=== PATIENT | female | born 1945 | race Caucasian/White ===

== ENCOUNTER 2020-07-19 10:57 | Emergency (ER) | payer OTHER ==
[~2020-07-19 10:57] MED LIST: ATROVENT INH S2.5 ML INH; BREO ELLIPTA 11 EACH INH; BUMEX 1MG TABLET1 MG PO; CETIRIZINE HCL10 MG PO; CRESTOR10 MG PO; ESOMEPRAZOLE MA40 MG PO; IRBESARTAN-HCT1 EAC1 PO; LEVAQUIN750 MG PO; MECLIZINE HCL25 MG PO; MONTELUKAST SOD10 MG PO; NASONEX17 GM; NEURONTIN600 MG PO; PRAVASTATIN SOD80 MG PO; PREDNISONE5 M1 PO; PROTONIX40 MG PO; ROPINIROLE HCL2 M1 PO; SPIRIVA HANDIH18 MCG INH; SYMBICORT 160-1 INHA INH; SYNTHROID88 MCG PO; TOPROL XL25 MG PO; VALSARTAN160 MG PO; VENTOLIN/PROVE0.5 ML INH; VITAMIN D21250 MCG PO
[2020-07-19 12:01] LABS: HEMOGLOBIN 12.3 gm/dl (12.3-15.3); RED BLOOD COUNT 4.44 M/UL (4.00-5.10); WHITE BLOOD COUNT 10.4 K/UL (4.5-11.0)
== END 2020-07-19 17:04 | disposition other institution (70) ==
LOC: ER1 10:57
PROVIDERS: Family Medicine
DX: I63.9 Cerebral infarction, unspecified (principal); R47.01 Aphasia; R29.705 NIHSS score 5; F41.9 Anxiety disorder, unspecified; E87.6 Hypokalemia; N28.9 Disorder of kidney and ureter, unspecified; Z20.822 Contact with and (suspected) exposure to COVID-19
CPT/HCPCS: 0240U; 36600; 70450; 70496; 70498; 71045; 80053; 80307; 81001; 82550; 82553; 82803; 83605; 83874; 84484; 85025; 85610; 93005; 94760; 96374; 96375; 99285; Q9967

== ENCOUNTER 2021-02-16 12:49 | Inpatient (IN) | payer OTHER ==
[~2021-02-16] VITALS: Ht 175.3 cm; Wt 102.5 kg
[~2021-02-16 12:49] MED LIST changes: +SYNTHROID200 MCG PO; -SYNTHROID88 MCG PO
[2021-02-16 13:23] LABS: HEMOGLOBIN 7.4 gm/dl (12.3-15.3); RED BLOOD COUNT 3.34 M/UL (4.00-5.10)
[2021-02-16 13:43] LABS: BUN/CREATININE RATIO 36 (0-10)
[2021-02-16] MEDS ORDERED: SOTALOL80 MG PO (16:23)
[2021-02-16] MEDS ORDERED: ROPINIROLE HCL2 MG PO (16:23)
[2021-02-16] MEDS ORDERED: VITAMIN D21250 MCG PO (16:23)
[2021-02-16] MEDS ORDERED: BUMETANIDE2 MG PO (16:23)
[2021-02-16] MEDS ORDERED: SPIRIVA HANDIH18 MCG INH (16:24)
[2021-02-16] MEDS ORDERED: ELIQUIS5 MG PO (16:24)
[2021-02-16] MEDS ORDERED: BREO ELLIPTA 11 EACH INH (16:24)
[2021-02-16] MEDS ORDERED: PRAVASTATIN SOD80 MG PO (16:24)
[2021-02-16] MEDS ORDERED: PROAIR HFA8.5 GM INH (16:25)
[2021-02-16] MEDS ORDERED: MONTELUKAST SOD10 MG PO (16:25)
[2021-02-16] MEDS ORDERED: ESOMEPRAZOLE MA40 MG PO (16:25)
[2021-02-16] MEDS ORDERED: IPRAT-ALBUT 0.5-3 ML INH (16:26)
[2021-02-16] MEDS ORDERED: BAYER CHEWABLE81 MG PO (16:26)
[2021-02-16] MEDS ORDERED: CETIRIZINE HCL10 MG PO (16:27)
[2021-02-16] MEDS ORDERED: MAGNESIUM500 MG PO (16:27)
--- NOTE | 2021-02-17 02:14 | NUR ---
[address] SHELTON THAT TRANSFUSION OF BLOOD HAD BEGAN AND PT HR HAD BEEN IN 70'S AND AT 15MIN CHECK IN 120'S , ON TELEY MONITOR PT IN AFIB, ALL OTHER VITALS ARE NORMAL. STATES PT HAS HX OF AFIB. ALSO DOESNT WANT PT TO BE ALONE IN ROOM, ASK TO HAVE DAUGHTER OR SON AND IF THEY COULDNT, TO HAVE A SITTER PLACED, OR MOVE PT CLOSE TO NURSES STATION. 1943 CALLED AND SPOKE WITH DAUGHTER SERA ZABALA SHE STATES SHE HAS A TUMOR ON HIP AND CANT SIT WITH MOTHER AND BROTHER HAS DIABETES AND HIS NUMBER ARE OUT OF WHACK ALL THE TIME. NOTIFIED HOUSE OF ABOVE WELL STATED DIDNT HAVE EXTRA STAFF FOR SITTER, UNLESS HYDRATE CONTROL TENDER COULD SIT. PT WAS MOVE STRAIGHT ACROSS FROM NURSES STATION. 4108 TO 4110. PT HAS BEEN ADVISED TO NOT GET OUT OF BED AND TO HIT CALL LIGHT FOR ASSISTANCE, YELLOW SKID SOCKS, BED IN LOWEST POSITION AND LOCKED, FALL RISK LIGHT ON, BED ALARM STRIP PLACED UNDER PT, BRACLET PLACED.
--- NOTE | 2021-02-17 02:21 | NUR ---
[address] SHELTON OF PT HR STAYING IN THE 120'130'S SINCE ADMINSTRATION OF BETAPACE AT 2230. PT IN NO SIGNS OF DISTRESS. PER CARDIZEM 5MG IVP X ONCE. ORDERS WERE PLACED. CARDIZEM WAS PUSHED AT 0133 OVER 3 MINUTES 0136 PT HR WAS 131 AT BEGINGING OF PUSH, DROPPED TO 106 THEN BACK TO 120, FLUSHED WAS PUSHED FOR 2MINS. WILL CONTINUE TO MONITOR PT. PT IS ON CONTINIOUS TELEY MONTIORING AND PULSE OX.
--- NOTE | 2021-02-17 06:39 | NUR ---
PT HAS A HX OF CHF. I HAVE TRIED TO BE CAREFUL AND NOT OVER LOAD THE PT TOO FAST WITH 2 UNITS OF PRBC. RECHECK IS FOR 0736.
[2021-02-17 07:51] LABS: HEMOGLOBIN 8.8 gm/dl (12.3-15.3); WHITE BLOOD COUNT 9.6 K/UL (4.5-11.0)
[2021-02-17 07:57] LABS: RED BLOOD COUNT 3.89 M/UL (4.00-5.10)
[2021-02-17 08:18] LABS: BUN/CREATININE RATIO 30 (0-10)
[2021-02-18 06:53] LABS: HEMOGLOBIN 9.6 gm/dl (12.3-15.3); RED BLOOD COUNT 4.19 M/UL (4.00-5.10); WHITE BLOOD COUNT 10.4 K/UL (4.5-11.0)
[2021-02-18 07:52] LABS: BUN/CREATININE RATIO 24 (0-10)
[2021-02-18] MEDS ORDERED: CARDIZEM 60MG T60 MG PO (10:35)
--- NOTE | 2021-02-18 14:22 | NUR ---
TELEMETRY CALLED TO SAY PATIENT HAD HAD 3 BEAT RUN OF NSVT AND 9 BEAT RUN OF V-TACH. DR. SEHLTON WAS NOITFIED AND THE STRIPS ARE ON THE CHART. STATED PATIENT HAD DEFIBRILATOR AND MEDICATIONS ON BOARD. SHE IS AWARE OF PATIENTS CARDIAC ISSUES AND IS FINE WITH HER BEING DISCHARGED. WILL CONTINUE TO MONITOR.
--- NOTE | 2021-02-18 16:05 | NUR ---
CALLED REPORT TO [facility] WITH TERRIE ALMAZAN RN AT 1600. SECOND CALL TO HOME [facility]ALTH, HAD CALLED AT DISCHARGE AND WAS TOLD [facility] WOULD CALL BACK. AT 1600 NOONE HAD CALLED. RECALLED HOME [facility] TO GIVE REPORT AND FINALLY WAS PUT IN TOUCH WITH NURSE.
== END 2021-02-18 14:50 | disposition home health service (06) | DRG 393 ==
LOC: ER1 12:49 → MED SURG 4 15:39 → CDU 15:39 → MED SURG 4 17:20
PROVIDERS: Physician Assistant Medical; ADMIT Internal Medicine
PROC: 30233N1 Transfusion of Nonautologous Red Blood Cells into Peripheral Vein, Percutaneous Approach (ICD-10-PCS; principal; 2021-02-15)
PROC: 0DB78ZX Excision of Stomach, Pylorus, Via Natural or Artificial Opening Endoscopic, Diagnostic (ICD-10-PCS; 2021-02-18)
DX: K64.9 Unspecified hemorrhoids (principal); I50.23 Acute on chronic systolic (congestive) heart failure; D62 Acute posthemorrhagic anemia; I42.2 Other hypertrophic cardiomyopathy; Z20.822 Contact with and (suspected) exposure to COVID-19; I11.0 Hypertensive heart disease with heart failure; E03.9 Hypothyroidism, unspecified; J44.9 Chronic obstructive pulmonary disease, unspecified; K44.9 Diaphragmatic hernia without obstruction or gangrene; K29.70 Gastritis, unspecified, without bleeding; I73.9 Peripheral vascular disease, unspecified; D50.9 Iron deficiency anemia, unspecified; M19.90 Unspecified osteoarthritis, unspecified site; R13.0 Aphagia; I48.91 Unspecified atrial fibrillation; Z79.01 Long term (current) use of anticoagulants; E66.01 Morbid (severe) obesity due to excess calories; Z88.1 Allergy status to other antibiotic agents; E78.5 Hyperlipidemia, unspecified; Z88.8 Allergy status to other drugs, medicaments and biological substances; Z95.810 Presence of automatic (implantable) cardiac defibrillator; I69.398 Other sequelae of cerebral infarction; Z90.710 Acquired absence of both cervix and uterus; Z90.49 Acquired absence of other specified parts of digestive tract; Z87.891 Personal history of nicotine dependence; Z82.3 Family history of stroke; Z83.3 Family history of diabetes mellitus; Z82.49 Family history of ischemic heart disease and other diseases of the circulatory system; Z68.33 Body mass index [BMI] 33.0-33.9, adult
CPT/HCPCS: 36415; 36430; 36600; 71045; 80048; 80053; 82270; 82550; 82553; 82803; 83874; 83880; 84484; 85025; 85027; 85610; 86850; 86900; 86901; 86920; 93005; 94640; 94760; 96374; 97116; 97161; 97165; 97535; 99285; C9113; J2001; J2704; J7040; J7050; P9016; U0002